=== PATIENT | female | born 1935 | race Asian ===

== ENCOUNTER 2017-03-08 18:20 | Emergency (ER) | payer MEDICARE, BC ==
[~2017-03-08] VITALS: Ht 154.9 cm; Wt 59.0 kg
[~2017-03-08 18:20] MED LIST: ATOR10TA PO; DORZ10DR11 OP; LOSA100T15 PO; NIFE20CA PO; TRAV2.5D2 LEFTEYE
--- NOTE | 2017-03-08 18:34 | NUR ---
PT BIB FAMILY TO ER 10. PRESENT W/ FACIAL AND GENERALIZED PAIN S/P FALL W/ AMBULATING W/ A WALKER. PT DENIES KO. PLACED ON MONITOR. STABLE VITALS. NAD NOTED. AWAITING MD BANUELOS.
--- NOTE | 2017-03-08 19:03 | NUR ---
DR WILSON AT BEDSIDE FOR EVAL.
--- NOTE | 2017-03-08 19:17 | NUR ---
BRANCH SPECIALIST AT BEDSIDE FOR BLOOD DRAW.
[2017-03-08 19:20] LABS: BASOPHILS % (AUTO) 0.7 % (0.0-2.0); EOSINOPHILS # (AUTO) 0.1 /CMM (0.0-0.7); HEMATOCRIT 46 % (33-45); HEMOGLOBIN 15.3 g/dL (11.5-14.8); LYMPHOCYTES # (AUTO) 1.7 /CMM (0.8-4.8); MEAN CORPUSCULAR HEMOGLOBIN 30 PG (26.0-33.0); MEAN CORPUSCULAR HGB CONC 33 g/dl (31.0-36.0); MEAN CORPUSCULAR VOLUME 92 fL (82-100); MONOCYTES # (AUTO) 0.5 /CMM (0.1-1.30); MONOCYTES % (AUTO) 8.6 % (2.0-12.0); NEUTROPHILS # (AUTO) 3.5 /CMM (1.8-8.9); NEUTROPHILS % (AUTO) 59.7 % (43.0-81.0); PLATELET COUNT (AUTO) 129 /CMM (150-450); RDW COEFFICIENT OF VARIATION 12.6 (11.5-15.0); RED BLOOD CELL COUNT(AUTO) 5.07 MIL/uL (4.0-5.2); WHITE BLOOD COUNT (AUTO) 5.9 K/uL (4.3-11.0)
--- NOTE | 2017-03-08 19:25 | NUR ---
PT TO RADIOLOGY FOR CT AND XRAY.
[2017-03-08 19:35] LABS: ALANINE AMINOTRANSFERASE 23 U/L (12-78); ALBUMIN 3.5 g/dL (3.4-5.0); ALKALINE PHOSPHATASE 59 U/L (46-116); ASPARTATE AMINOTRANSFERASE 19 U/L (15-37); BILIRUBIN,DIRECT 0.1 mg/dL (0.0-0.2); BILIRUBIN,TOTAL 0.4 mg/dL (0.2-1.0); CALCIUM, SERUM 9.1 mg/dL (8.5-10.1); CARBON DIOXIDE 31 mmol/L (21-32); CHLORIDE 106 mmol/L (98-107); CREATININE 0.9 mg/dL (0.6-1.3); GLUCOSE 98 mg/dL (74-106); SODIUM SERUM 142 mmol/L (136-145); TOTAL PROTEIN, SERUM 7.2 g/dL (6.4-8.2); UREA NITROGEN, BLOOD 24 mg/dL (7-18)
[2017-03-08 19:37] LABS: TROPONIN I < 0.017 ng/mL (0.00-0.056)
[2017-03-08] MEDS ORDERED: LIDOCAINE 1%-EPI 1:100,000 50 ML VIAL IJ ONE (19:49)
--- NOTE | 2017-03-08 19:56 | NUR ---
[facility] AT BEDSIDE FOR LAC REPAIR.
--- NOTE | 2017-03-08 21:09 | NUR ---
AMBULATORY W/ STEADY GAIT USING A WALKER. DR WILSON AT BEDSIDE. PT D/C IN STABLE CONDITION. PT'S SON TO TAKE PT HOME.
[2017-03-08 21:13] VITALS: BP 136/80
== END 2017-03-08 21:16 | disposition home or self-care (01) ==
LOC: ER 18:23
DX: S02.2XXA Fracture of nasal bones, initial encounter for closed fracture (principal); S01.511A Laceration without foreign body of lip, initial encounter; S80.212A Abrasion, left knee, initial encounter; I10 Essential (primary) hypertension; W01.0XXA Fall on same level from slipping, tripping and stumbling without subsequent striking against object, initial encounter; Y93.89 Activity, other specified; Y92.89 Other specified places as the place of occurrence of the external cause; Y99.8 Other external cause status
CPT/HCPCS: 12011; 36415; 70450; 70486; 72125; 73130; 73560; 73590; 80048; 80076; 84484; 85025; 93005; 99285; A6402; J3490; Z7610